=== PATIENT | female | born 1995 | race African-American/Black ===

== ENCOUNTER 2018-01-06 10:18 | Emergency (ER) | payer OTHER ==
[~2018-01-06] VITALS: Ht 160 cm; Wt 113.4 kg
[2018-01-06 10:34] LABS: URINE BILIRUBIN NEGATIVE (Negative); URINE BLOOD 1+ (Negative); URINE CLARITY CLOUDY; URINE COLOR YELLOW; URINE GLUCOSE-RANDOM* NEGATIVE (Negative); URINE KETONES NEGATIVE (Negative); URINE LEUKOCYTES-REFLEX 2+ (Negative); URINE NITRITE-REFLEX NEGATIVE (Negative); URINE PROTEIN (DIPSTICK) TRACE (Negative); URINE UROBILINOGEN 0.2 E.U./dl (0.2-1.0)
[2018-01-06 10:42] LABS: CASTS None Seen /LPF (None Seen); SQUAMOUS 0-3 Few /LPF (0-3); URINE RBC 3-10 Few /HPF (0-2); URINE WBC-REFLEX >25 Many /HPF (0-5)
[2018-01-06 10:43] LABS: CRYSTALS None Seen /LPF (None Seen)
[2018-01-06] MEDS ORDERED: MACROBID 100 M100 M1 PO (10:53)
[2018-01-06] MEDS ORDERED: PHENAZOPYRIDIN200 M2 PO (10:53)
== END 2018-01-06 11:21 | disposition home or self-care (01) ==
LOC: ER 10:18
PROVIDERS: Nurse Practitioner Family
DX: N39.0 Urinary tract infection, site not specified (principal)

== ENCOUNTER 2018-05-01 08:38 | Emergency (ER) | payer OTHER ==
[~2018-05-01] VITALS: Ht 162.6 cm; Wt 104.3 kg
[~2018-05-01 08:38] MED LIST: MACROBID 100 M100 M1 PO; PHENAZOPYRIDIN200 M2 PO
[2018-05-01 10:15] LABS: HEMOGLOBIN 11.3 gm/dL (12.0-15.0); MCH 26.5 pg (26.0-34.0); MCHC 32.4 g/dL (28.0-37.0); MCV 81.6 fL (80.0-100.0); RBC 4.29 mil/uL (4.20-5.00); RDW 15.8 % (10.5-14.5)
[2018-05-01 10:22] LABS: CALCIUM 9.3 mg/dL (8.5-10.1); CREATININE 0.7 mg/dL (0.6-1.0); MAGNESIUM 1.7 mg/dL (1.8-2.4); POTASSIUM 3.6 mmol/L (3.5-5.1)
[2018-05-01] MEDS ORDERED: REGLAN 5 MG TAB5 MG PO (11:29)
[2018-05-01 11:41] VITALS: BP 134/69
== END 2018-05-01 11:44 | disposition home or self-care (01) ==
LOC: ER 08:38
PROVIDERS: Emergency Medicine
DX: O26.891 Other specified pregnancy related conditions, first trimester (principal); R11.0 Nausea; Z3A.01 Less than 8 weeks gestation of pregnancy

== ENCOUNTER 2018-05-29 08:36 | Emergency (ER) | payer OTHER ==
[~2018-05-29] VITALS: Ht 162.6 cm; Wt 137.0 kg
[~2018-05-29 08:36] MED LIST changes: +REGLAN 5 MG TAB5 MG PO
[2018-05-29 08:45] LABS: URINE BILIRUBIN NEGATIVE (Negative); URINE BLOOD 3+ (Negative); URINE CLARITY CLOUDY; URINE COLOR YELLOW; URINE GLUCOSE-RANDOM* NEGATIVE (Negative); URINE KETONES NEGATIVE (Negative); URINE NITRITE-REFLEX NEGATIVE (Negative); URINE PROTEIN (DIPSTICK) 1+ (Negative); URINE SPECIFIC GRAVITY >= 1.030 (1.005-1.035); URINE UROBILINOGEN 0.2 E.U./dl (0.2-1.0)
[2018-05-29] MEDS ORDERED: DICLEGIS DR 101 EACH PO (08:47)
[2018-05-29 09:11] LABS: URINE LEUKOCYTES-REFLEX 2+ (Negative)
[2018-05-29 09:19] LABS: RDW 17.2 % (10.5-14.5)
[2018-05-29 09:21] LABS: HEMATOCRIT 33.2 % (37.0-47.0); HEMOGLOBIN 11.1 gm/dL (12.0-15.0); MCH 26.6 pg (26.0-34.0); MCHC 33.4 g/dL (28.0-37.0); MCV 79.6 fL (80.0-100.0); RBC 4.18 mil/uL (4.20-5.00)
[2018-05-29 09:33] LABS: BACTERIA-REFLEX >30 Many /HPF (None Seen); CASTS None Seen /LPF (None Seen); CRYSTALS None Seen /LPF (None Seen); SQUAMOUS 4-10 Moderate /LPF (0-3); URINE RBC 3-10 Few /HPF (0-2); URINE WBC-REFLEX >25 Many /HPF (0-5)
[2018-05-29 10:26] LABS: ANISOCYTOSIS 1+
[2018-05-29 10:27] LABS: PLATELET COUNT 333 thou/uL (150-400)
[2018-05-29 10:43] LABS: ALBUMIN 3.1 g/dL (3.4-5.0); ANION GAP 10 mmol/L (7-16); BUN 7 mg/dL (7-18); CALCIUM 9.4 mg/dL (8.5-10.1); CHLORIDE 102 mmol/L (98-107); CO2 24 mmol/L (21-32); CREATININE 0.8 mg/dL (0.6-1.0); DIRECT BILIRUBIN < 0.1 mg/dL (<0.1-0.3); GLUCOSE 94 mg/dL (74-106); LIPASE 80 U/L (73-393); POTASSIUM 3.4 mmol/L (3.5-5.1); SGOT 12 U/L (15-37); SGPT 20 U/L (30-65); SODIUM 136 mmol/L (136-145); TOTAL BILIRUBIN 0.2 mg/dL (<0.1-1.0); TOTAL PROTEIN 7.5 g/dL (6.4-8.2)
[2018-05-29 10:45] LABS: ABSOLUTE NEUTROPHILS 11.8 thou/uL (1.4-8.2); WBC 16.8 thou/uL (4.0-11.0)
[2018-05-29] MEDS ORDERED: KEFLEX500 M1 PO (11:19)
[2018-05-29] MEDS ORDERED: REGLAN 5 MG TAB5 MG PO (11:19)
[2018-05-29 11:48] VITALS: BP 146/65
== END 2018-05-29 11:49 | disposition home or self-care (01) ==
LOC: ER 08:36
PROVIDERS: Emergency Medicine
DX: N39.0 Urinary tract infection, site not specified (principal)